=== PATIENT | female | born 1950 | race Caucasian/White ===

== ENCOUNTER → 2017-02-03 | Outpatient (CLI) | payer OTHER ==
--- NOTE | 2017-02-03 15:23 | RAD ---
HISTORY: Joint stiffness nontraumatic Study: Left wrist three view Comparison: None Findings: No evidence for acute cortical disruption or dislocation can be identified. The carpal bones appear well aligned. The visualized portions of the distal radius and ulna are unremarkable. No signific ant soft tissue abnormality can be identified. the joints are normal. IMPRESSION: 1. Negative exam. Reported By:
--- NOTE | 2017-02-03 15:23 | RAD ---
HISTORY: Joint stiffness, nontraumatic Study: Right wrist three view Comparison: None Findings: No evidence for acute cortical disruption or dislocation can be identified. The carpal bones appear well aligned. The visualized portions of the distal radius and ulna are unremarkable. No signific ant soft tissue abnormality can be identified. the joints are normal. IMPRESSION: 1. Negative exam. Reported By:
--- NOTE | 2017-02-03 15:24 | RAD ---
HISTORY: Joint pain and stiffness Study: Right hand three view Comparison: None Findings: There is no evidence for acute bone or acute joint abnormality. No fracture, lytic, or blastic lesio n is identified. No erosive arthritis is present. The carpal bones are intact and normally aligned. The distal radius and distal ulna are intact. There is mild degenerative joint disease involving the DIP joints. IMPRESSION: Mild degenerative joint disease involving the DIP joint Reported By:
--- NOTE | 2017-02-03 15:25 | RAD ---
HISTORY: Joint pain and stiffness Study: Left hand three view Comparison: None Findings: There is no evidence for acute bone or acute joint abnormality. No fracture, lytic, or blastic lesio n is identified. No erosive arthritis or soft tissue abnormality is identified. The carpal bones are intact and normally aligned. The distal radius and distal ulna are intact. There is mild degenerati ve joint disease 2nd through 5th DIP joints. IMPRESSION: Mild degenerative joint disease 2nd through 4th DIP joints Reported By:
[2017-02-03 15:37] LABS: RHEUMATOID FACTOR NEGATIVE (NEGATIVE)
[2017-02-07 06:16] LABS: ANTI-NUCLEAR ANTIBODY TEST None Detected (None Detected)
== END | disposition home or self-care (01) | DRG 556 ==
LOC: LAB 14:24
PROVIDERS: ATTEND Nurse Practitioner Family
DX: M25.631 Stiffness of right wrist, not elsewhere classified (principal); M25.641 Stiffness of right hand, not elsewhere classified; M25.632 Stiffness of left wrist, not elsewhere classified; M25.642 Stiffness of left hand, not elsewhere classified; M19.041 Primary osteoarthritis, right hand; M19.042 Primary osteoarthritis, left hand
CPT/HCPCS: 36415; 73100; 73130; 85652; 86140; 86200; 86308; 86430

== ENCOUNTER → 2017-06-26 | Outpatient (CLI) | payer OTHER ==
[2017-06-26 09:29] LABS: BASOPHILS # (AUTO) 0.1 X10^3/uL (0.0-0.1); BASOPHILS % (AUTO) 1.2 % (0.2-1.0); EOSINOPHILS # (AUTO) 0.2 x10^3/uL (0.0-0.2); EOSINOPHILS % (AUTO) 4.5 % (0.9-2.9); HEMATOCRIT 43.3 % (36.0-47.0); HEMOGLOBIN 14.6 g/dL (12.0-16.0); LYMPHOCYTES # (AUTO) 1.4 X10^3/uL (1.3-2.9); LYMPHOCYTES % (AUTO) 27.3 % (21.0-51.0); MEAN CORPUSCULAR HEMOGLOBIN 29.1 pg (27.0-34.0); MEAN CORPUSCULAR HGB CONC 33.8 g/dL (33.0-35.0); MEAN CORPUSCULAR VOLUME 86.2 fL (80.0-100.0); MEAN PLATELET VOLUME 9.2 fL (7.4-11.0); MONOCYTES # (AUTO) 0.5 x10^3/uL (0.3-0.8); MONOCYTES % (AUTO) 9.2 % (0.0-13.0); NEUTROPHILS % (AUTO) 57.8 % (42.0-75.0); PLATELET COUNT 194 X10^3/uL (150.0-450.0); RED BLOOD COUNT 5.02 X10^6/uL (3.5-5.4); RED CELL DISTRIBUTION WIDTH 13.7 % (11.6-16.5); WHITE BLOOD COUNT 5.3 X10^3/uL (3.6-10.0)
[2017-06-26 09:48] LABS: ALANINE AMINOTRANSFERASE 28 Units/L (12-78); ALBUMIN 3.9 g/dL (3.4-5.0); ALKALINE PHOSPHATASE 98 Units/L (46-116); ASPARTATE AMINO TRANSFERASE 21 Units/L (15-37); BLOOD UREA NITROGEN 11 mg/dL (7-18); CALCIUM 9.1 mg/dL (8.5-10.1); CARBON DIOXIDE 29.6 mmol/L (21-32); CHLORIDE 110 mmol/L (98-107); CHOL/HDL RATIO 2.3 (0.0-5.0); CHOLESTEROL 175 mg/dL (0-200); CREATININE 0.62 mg/dL (0.55-1.02); HDL CHOLESTEROL 75 mg/dL (40-60); SODIUM 143 mmol/L (136-145); T4 (THYROXINE) 6.6 ug/dL (4.7-13.3); TRIGLYCERIDES 71 mg/dL (0-150); TSH (3RD GENERATION) 1.927 uIU/mL (0.358-3.74); eGFR BLACK RACES > 60 (>60); eGFR NON BLACK RACES > 60 (>60)
--- NOTE | 2017-06-26 15:28 | US ---
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 Comparison: May 22, 2016 and January 16, 2015 FINDINGS: Mammogram: Bilateral CC and MLO projections of the right and left breast were obtained. Scattered fi broglandular tissue is seen to be present without significant interval change. No suspicious archite ctural distortion, mass or clustered microcalcifications can be observed to suggest malignancy. No s kin thickening or nipple retraction is appreciated. No pathological lymphadenopathy can be identifi ed. Benign-appearing calcifications and nodules are noted within the right and left breast. Ultrasound: Multiple grayscale images of the 6 o'clock position both breasts were obtained. There are no suspicious cystic or solid nodules. No focal fluid collections are identified. There is no pathol ogic lymphadenopathy. IMPRESSION: NO RADIOGRAPHIC EVIDENCE OF MALIGNANCY. ACR CATEGORY 2 - benign findings. FOLLOW-UP EXAM 1 YEAR. Diagnostic CAD was utilized and reviewed. * 0 (ZERO) - ASSESSMENT INCOMPLETE; ADDITIONAL IMAGING IS NEEDED. * 1/1 (ONE) - NEGATIVE. * 2/II (TWO) - BENIGN FINDINGS. * 3/III (THREE) - PROBABLY BENIGN FINDING; SHORT INTERVAL FOLLOW-UP SUGGESTED. * 4/IV (FOUR) - SUSPICIOUS ABNORMALITY; BIOPSY SHOULD BE CONSIDERED. * 5/V (FIVE) - HIGHLY SUSPICIOUS OF MALIGNANCY; BIOPSY SHOULD BE PERFORMED. A NEGATIVE X-RAY REPORT SHOULD NOT DELAY BIOPSY IF A DOMINANT OR CLINICALLY SUSPICIOUS MASS IS PRESENT; 4 TO 8 PERCENT OF CANCERS ARE NOT IDENTIFIED BY X-RAY. A NEGA TIVE REPORT MAY REINFORCE THE CLINICAL IMPRESSION. ADENOSIS AND DENSE BREASTS MAY OBSCURE AN UNDERLY ING NEOPLASM. Reported By:
== END | disposition home or self-care (01) | DRG 642 ==
LOC: RAD 08:33
PROVIDERS: ATTEND Nurse Practitioner Family
DX: E78.4 Other hyperlipidemia (principal); Z80.41 Family history of malignant neoplasm of ovary; Z83.71 Family history of colonic polyps; Z01.419 Encounter for gynecological examination (general) (routine) without abnormal findings; N63 Unspecified lump in breast; N60.02 Solitary cyst of left breast
CPT/HCPCS: 36415; 76642; 77066; 80053; 80061; 82378; 84436; 84443; 85025; 86316

== ENCOUNTER → 2017-10-06 | Outpatient (CLI) | payer OTHER ==
[2017-10-06 09:19] LABS: BASOPHILS # (AUTO) 0.1 X10^3/uL (0.0-0.1); EOSINOPHILS # (AUTO) 0.3 x10^3/uL (0.0-0.2); EOSINOPHILS % (AUTO) 4.3 % (0.9-2.9); HEMATOCRIT 43.4 % (36.0-47.0); HEMOGLOBIN 14.7 g/dL (12.0-16.0); LYMPHOCYTES # (AUTO) 1.7 X10^3/uL (1.3-2.9); LYMPHOCYTES % (AUTO) 28.2 % (21.0-51.0); MEAN CORPUSCULAR HEMOGLOBIN 29.7 pg (27.0-34.0); MEAN CORPUSCULAR VOLUME 87.3 fL (80.0-100.0); MEAN PLATELET VOLUME 9.3 fL (7.4-11.0); MONOCYTES # (AUTO) 0.5 x10^3/uL (0.3-0.8); MONOCYTES % (AUTO) 8.8 % (0.0-13.0); NEUTROPHILS # (AUTO) 3.5 x10^3/uL (2.2-4.8); NEUTROPHILS % (AUTO) 57.7 % (42.0-75.0); PLATELET COUNT 220 X10^3/uL (150.0-450.0); RED BLOOD COUNT 4.97 X10^6/uL (3.5-5.4); WHITE BLOOD COUNT 6.1 X10^3/uL (3.6-10.0)
[2017-10-06 09:25] LABS: ALANINE AMINOTRANSFERASE 31 Units/L (12-78); ALBUMIN 3.9 g/dL (3.4-5.0); ALKALINE PHOSPHATASE 114 Units/L (46-116); ASPARTATE AMINO TRANSFERASE 19 Units/L (15-37); BLOOD UREA NITROGEN 17 mg/dL (7-18); C-REACTIVE PROTEIN < 0.50 mg/L (0-3.0); CALCIUM 8.8 mg/dL (8.5-10.1); CARBON DIOXIDE 27.4 mmol/L (21-32); CHLORIDE 106 mmol/L (98-107); CREATININE 0.66 mg/dL (0.55-1.02); SODIUM 142 mmol/L (136-145); TOTAL PROTEIN 7.3 g/dL (6.4-8.2); eGFR BLACK RACES > 60 (>60); eGFR NON BLACK RACES > 60 (>60)
[2017-10-06 10:01] LABS: ERYTHROCYTE SEDIMENTATION RATE 2 MM/HOUR (0-20)
== END ==
LOC: LAB 08:31
PROVIDERS: ATTEND Nurse Practitioner Family
DX: M81.0 Age-related osteoporosis without current pathological fracture (principal); K21.9 Gastro-esophageal reflux disease without esophagitis; M47.9 Spondylosis, unspecified
CPT/HCPCS: 36415; 80053; 82306; 85025; 85652; 86140

== ENCOUNTER → 2017-10-21 | Outpatient (CLI) | payer OTHER ==
--- NOTE | 2017-10-21 12:17 | CT ---
STUDY: CT PARANASAL SINUSES WITHOUT CONTRAST HISTORY: Cellulitis of right side of the face for 1 week. Comparison: Head CT dated November 07, 2015. Technique: Multiple axial images of the paranasal sinuses were obtained without the administration of IV contrast. Coronal and sagittal reformats were performed and reviewed. Automated exposure control (AEC) was utilized to adjust the MA and/or kV. Findings: Axial images: The right maxillary sinus is clear. There is a small fluid level in the left maxillary sinus. There is mild mucosal thickening in several ethmoid air cells and sphenoid sinus. This opacifi cation of frontal recess on the left. The frontal sinus is predominantly clear. There is no evidence of osteoneogenesis. The retro antral fat is clear. The nasal cavity is within normal limits. There is no significant nasal septal deviation. The nasal bone is intact. Note is made of soft tissue swellin g is stranding of subcutaneous fat involving the preseptal periorbital soft tissues on the right. The re is extension of stranding over the right premalar soft tissues and right side of the face to the m andible. Reformatted images: The ethmoid roofs are slightly higher on the left than the right. The lamina sepideh racea is intact bilaterally. There is no evidence of orbital blowout. The ostiomeatal units are predo minantly clear. No signficant odontogenic abnormality is identified. Mastoid air cells and middle ear cavities are predominately clear. IMPRESSION: 1. Paranasal sinus mucosal thickening and fluid level in the left maxillary sinus. Clinical correlat ion for acute left maxillary sinusitis is recommended. 2. Right facial cellulitis. 3. Normal appearing mastoid air cells and middle ear cavities bilaterally. Reported By:
== END ==
LOC: RAD 11:01
PROVIDERS: ATTEND Psychiatry & Neurology Neurology
DX: L03.211 Cellulitis of face (principal); J34.89 Other specified disorders of nose and nasal sinuses
CPT/HCPCS: 70486